=== PATIENT | female | born 1940 | race Caucasian/White ===

== ENCOUNTER 2020-05-28 22:45 | Emergency (ER) | payer MEDICAID ==
--- NOTE | 2020-05-28 23:04 | ED ---
Fever HPI - General Stated Complaint: Covid+ Time Seen by Provider: 05/28/20 22:50 Source: patient, EMS Mode of arrival: EMS Limitations: altered mental status - History of Present Illness Initial Comments: This patient is an 79-year-old woman reportedly with history of advanced dementia, reported to be hospice patient, sent from home and arriving by ambulance. The hospice had reportedly arrange for patient to be transferred here to have mono clonal Antibody infusion for recent diagnosis of Covid 19. When I review the patient, she does not have complaints. History is limited by dementia MD Complaint: fever Onset/Timin -: days(s) Associated Symptoms: denies other symptoms - Related Data Allergies Allergy/AdvReac Type Severity Reaction Status Date / Time Unable to Assess Allergy Verified 05/28/20 23:01 Review of Systems ROS Statement: Those systems with pertinent positive or pertinent negative responses have been documented in the HPI. ROS Other: All systems not noted in ROS Statement are negative. Limitations: ROS unobtainable due to patients medical condition Past Medical History Past Medical History: Dementia Additional Past Medical History / Comment(s): On hospice History of Any Multi-Drug Resistant Organisms: Unobtainable Past Surgical History: Unable to Obtain Smoking Status: Unknown if ever smoked Past Alcohol Use History: Unable to Obtain Past Drug Use History: Unable to Obtain General Exam Limitations: altered mental status General appearance: alert, in no apparent distress Head exam: Present: atraumatic, normocephalic Eye exam: Present: normal appearance. Absent: scleral icterus, conjunctival injection Respiratory exam: Present: rales. Absent: respiratory distress, wheezes, rhonchi, stridor, accessory muscle use, decreased breath sounds, prolonged expiratory Cardiovascular Exam: Present: regular rate, normal rhythm, systolic murmur. Absent: diastolic murmur, rubs, gallop GI/Abdominal exam: Present: soft. Absent: distended, tenderness, guarding Neurological exam: Present: alert. Absent: oriented X3 Skin exam: Present: warm, dry, intact, normal color. Absent: rash Course Vital Signs 05/28/20 05/29/20 22:50 01:29 Temperature 98 F Pulse Rate 77 70 Respiratory 16 18 Rate Blood Pressure 100/66 117/55 O2 Sat by Pulse 95 95 Oximetry Disposition Clinical Impression: COVID-19 Disposition: HOME SELF-CARE Condition: Undetermined Instructions (If sedation given, give patient instructions): Coronavirus Disease 2019 (COVID-19) Is patient prescribed a controlled substance at d/c from ED?: No Referrals: None,Stated [Primary Care Provider] - 1-2 days
[2020-05-28 23:13] VITALS: TEMP 98
[2020-05-29] MEDS ORDERED: BAMLANIVIMAB (EUA) 700 MG, ETESEVIMAB (EUA) 1,400 MG in SODIUM CHLORIDE 0.9% 50 ML IVPB ONE ×3
[2020-05-29 01:30] VITALS: BP 117/55; PULSE 70; RESP 18
== END 2020-05-29 02:00 | disposition home or self-care (01) ==
LOC: EC 22:45
DX: U07.1 COVID-19 (principal)
CPT/HCPCS: 99283; 96365; Q0245